=== PATIENT | male | born 1955 | race Caucasian/White ===

== ENCOUNTER → 2019-05-04 | Outpatient (CLI) | payer MEDICARE, BC ==
--- NOTE | 2019-05-06 10:24 | TST ---
[place] [address] [employer] STRESS TEST Name: CAROLYNE SOSA Room: [facility]#: [id number] Admission: 05/04/19 Attend Phys: Micky Wahl MD Discharge: Date of : 51 Date of Service: 05/04/19 1710 Report #: [id number] THIS REPORT FOR: //name// CC: MICKY Wahl DATE OF SERVICE: 05/04/2019 INDICATION: Preoperative evaluation. CARDIAC RISK FACTORS: Age greater than 45, hyperlipidemia, hypertension, and family history of coronary artery disease. CARDIAC MEDICATIONS: Norvasc and Lipitor. The patient exercised per standard Stan protocol for a total of 6 minutes and 59 seconds. Exercise was terminated due to achievement of target heart rate. The resting blood pressure was 147/106 mmHg with resting pulse rate of 96 beats per minute. At peak stress, the blood pressure was 207/85 mmHg with a peak stress heart rate of 148 beats per minute. In recovery, the blood pressure was 162/100 mmHg with a heart rate of 94 beats per minute. The patient did not have any significant chest pain with standard Stan protocol exercise. The baseline 12-lead EKG shows sinus rhythm without significant ST or T-wave abnormalities. EKGs obtained during and post-exercise shows sinus rhythm and sinus tachycardia with no significant ST segment changes when compared to baseline. There were no significant stress-induced arrhythmias. IMPRESSION: 1. No clinical evidence to suggest stress-induced ischemia. 2. No electrocardiographic evidence of stress-induced ischemia. 3. The patient exhibited fair exercise tolerance. CONCLUSION: The standard Stan protocol exercise stress test shows no clinical or EKG evidence of stress-induced ischemia. This is a low-risk study. <ELECTRONICALLY SIGNED> By: Gene Yadav MD, FACC 05/06/19 [id number] Gene Yadav MD, FACC /nt
== END ==
LOC: M.CRD 14:43
DX: Z01.818 Encounter for other preprocedural examination (principal)